=== PATIENT | male | born 1955 | race Caucasian/White ===

== ENCOUNTER 2019-07-14 09:28 | Emergency (ER) | payer OTHER ==
[2019-07-14 10:13] LABS: BASOPHILS # (AUTO) 0.1 10^3/uL (0.0-0.1); BASOPHILS % (AUTO) 0.6 %; EOSINOPHILS # (AUTO) 0.3 10^3/uL (0.0-0.7); EOSINOPHILS % (AUTO) 3.3 %; HGB - HEMOGLOBIN 15.5 g/dL (14.0-18.0); LYMPHOCYTES # (AUTO) 1.6 10^3/uL (1.5-3.5); MEAN CORPUSCULAR HEMOGLOBIN 31.6 pg (27.0-31.0); MEAN CORPUSCULAR HGB CONC 33.5 g/dL (32.0-36.0); MEAN CORPUSCULAR VOLUME 94.5 fL (80.0-94.0); MEAN PLATELET VOLUME 9.8 fL (7.4-11.4); MONOCYTES # (AUTO) 0.7 10^3/uL (0.0-1.0); MONOCYTES % (AUTO) 9.4 %; NEUTROPHILS # (AUTO) 5.2 10^3/uL (1.5-6.6); NEUTROPHILS % (AUTO) 66.3 %; PLT - PLATELET COUNT 249 10^3/uL (130-450); RED CELL DISTRIBUTION WIDTH 12.9 % (12.0-15.0); WHITE BLOOD COUNT 7.8 x10^3/uL (4.8-10.8)
[2019-07-14 10:26] LABS: ALBUMIN 3.7 g/dL (3.2-5.5); ALBUMIN/GLOBULIN RATIO 1.1 (1.0-2.2); BILIRUBIN,TOTAL 0.8 mg/dL (0.2-1.0); CALCIUM 8.6 mg/dL (8.5-10.3); CREATININE 0.9 mg/dL (0.6-1.2); TOTAL PROTEIN 7.1 g/dL (6.7-8.2)
--- NOTE | 2019-07-14 10:43 | ED Physician Documentation ---
PD HPI DYSPNEA - Stated complaint Stated Complaint: HANDS,LEGS SWELLING - Chief complaint Chief Complaint: Cardiac - History obtained from History obtained from: Patient - History of Present Illness Timing - onset: How many days ago (Few days of progressive edema initially in the feet and ankles. He had started a new job that was on his feet more so thought it was just gravity. He has been elevating his legs more after work. I worries not feeling swelling in his arms for a couple of days and then around his face. He denies any intraoral swelling or any dyspnea. He has been urinating okay. He denies any hives or itching. He denies change in diet or salt intake. No new medications. He does not take blood pressure medicines but only have a aspirin a day.) Timing - onset during: Light activity Timing - details: Gradual onset, Still present Inciting event(s): No: Out of meds, URI, Immobilization/travel Worsened by: Exertion (mild exertional dyspnea; no orthopnea.) Associated symptoms: Bilateral edema. No: Fever, Cough, Hemoptysis, Wheezing, Anxiety Similar symptoms before: Has not had sx before Review of Systems Constitutional: denies: Fever, Chills, Myalgias Nose: denies: Rhinorrhea / runny nose, Congestion Throat: denies: Sore throat Respiratory: denies: Cough GI: denies: Abdominal Pain, Nausea, Vomiting, Diarrhea, Bloody / black stool Skin: denies: Rash, Lesions Neurologic: denies: Altered mental status, Headache Endocrine: reports: Weight gain (about 5 lbs in the past week.). denies: Weight loss PD PAST MEDICAL HISTORY - Past Medical History Past Medical History: No - Past Surgical History Past Surgical History: Yes - Present Medications Home Medications: Ambulatory Orders Medication Instructions Recorded Confirmed Aspirin Chewable [St Austyn 81 mg ORAL DAILY 07/14/19 07/14/19 Aspirin] Cetirizine [ZyrTEC] 10 mg PO DAILY #15 tablet 07/14/19 Furosemide [Lasix] 20 mg PO DAILY #10 tablet 07/14/19 dexAMETHasone [Decadron] 4 mg PO DAILY #5 tablet 07/14/19 - Allergies Allergies/Adverse Reactions: Allergies Allergy/AdvReac Type Severity Reaction Status Date / Time No Known Drug Allergies Allergy Verified 07/14/19 09:42 - Social History Does the pt smoke?: No Smoking Status: Former smoker Does the pt drink ETOH?: No Does the pt have substance abuse?: No - Immunizations Immunizations: TDAP >10years/unknown PD ED PE NORMAL - Vitals Vital signs reviewed: Yes - General General: Alert and oriented X 3, No acute distress, Well developed/nourished - HEENT HEENT: Moist mucous membranes, Pharynx benign - Neck Neck: Supple, no meningeal sign, No adenopathy - Cardiac Cardiac: RRR, No murmur - Respiratory Respiratory: Clear bilaterally - Abdomen Abdomen: Soft, Non tender - Derm Derm: Normal color, Warm and dry - Extremities Extremities: No calf tenderness / cord, Other (1+ edema in legs/feet, arms/hands, and some in face, and notable periorbital. No intraoral swelling. ) - Neuro Neuro: Alert and oriented X 3, No motor deficit, Normal speech Results - Vitals Vitals: Oxygen O2 Source Room air - Labs Labs: Laboratory Tests 07/14/19 07/14/19 07/14/19 10:03 10:03 10:03 WBC 7.8 RBC 4.90 Hgb 15.5 Hct 46.3 MCV 94.5 H MCH 31.6 H MCHC 33.5 RDW 12.9 Plt Count 249 MPV 9.8 Neut # (Auto) 5.2 Lymph # (Auto) 1.6 [place] # (Auto) 0.7 Eos # (Auto) 0.3 Baso # (Auto) 0.1 Absolute Nucleated RBC 0.00 Nucleated RBC % 0.0 Sodium 137 Potassium 3.7 Chloride 104 Carbon Dioxide 25 Anion Gap 8.0 BUN 14 Creatinine 0.9 Estimated GFR (MDRD) 85 L Glucose 109 H Calcium 8.6 Magnesium 2.0 Total Bilirubin 0.8 AST 23 ALT 27 Alkaline Phosphatase 51 Troponin I High Sens 7.5 B-Natriuretic Peptide Total Protein 7.1 Albumin 3.7 Globulin 3.4 Albumin/Globulin Ratio 1.1 Lipase 31 TSH Urine Color Urine Clarity Urine pH Ur Specific [place] Urine Protein Urine Glucose (UA) Urine Ketones Urine Occult Blood Urine Nitrite Urine Bilirubin Urine Urobilinogen Ur Leukocyte Esterase Ur Microscopic Review Urine Culture Comments 07/14/19 07/14/19 07/14/19 10:03 10:03 12:54 WBC RBC Hgb Hct MCV MCH MCHC RDW Plt Count MPV Neut # (Auto) Lymph # (Auto) [place] # (Auto) Eos # (Auto) Baso # (Auto) Absolute Nucleated RBC Nucleated RBC % Sodium Potassium Chloride Carbon Dioxide Anion Gap BUN Creatinine Estimated GFR (MDRD) Glucose Calcium Magnesium Total Bilirubin AST ALT Alkaline Phosphatase Troponin I High Sens B-Natriuretic Peptide 30 Total Protein Albumin Globulin Albumin/Globulin Ratio Lipase TSH 1.71 Urine Color LT. YELLOW Urine Clarity CLEAR Urine pH 5.5 Ur Specific Hammond 1.010 Urine Protein NEGATIVE Urine Glucose (UA) NEGATIVE Urine Ketones NEGATIVE Urine Occult Blood NEGATIVE Urine Nitrite NEGATIVE Urine Bilirubin NEGATIVE Urine Urobilinogen 0.2 (NORMAL) Ur Leukocyte Esterase NEGATIVE Ur Microscopic Review NOT INDICATED Urine Culture Comments NOT INDICATED PD MEDICAL DECISION MAKING - ED course Complexity details: considered differential (General edema initially in the legs and feet and then the arms and now a little bit in the face. There is no signs of heart disease or kidney failure or proteinuria. I would consider the idea of allergic reaction to his aspirin. He is not on an JEM inhibitor.), d/w patient Departure - Departure Disposition: Home, Self Care Clinical Impression: Peripheral edema Condition: Stable Record reviewed to determine appropriate education?: Yes Instructions: ED Edema Legs Bilateral Follow-Up: Maurice Martin MD [Primary Care Provider] - Prescriptions: Cetirizine [ZyrTEC] 10 mg PO DAILY #15 tablet dexAMETHasone [Decadron] 4 mg PO DAILY #5 tablet Furosemide [Lasix] 20 mg PO DAILY #10 tablet Comments: There is no signs of heart failure, kidney failure electrolyte disorders or thyroid disorder. Your urine is normal without any signs of protein loss new urine. I do not have an obvious cause of the edema at this point. My p resumption would be an allergic reaction to your aspirin so I would have you hold that for now and treat with the diuretic for several days to week as well as a mild steroid and antihistamines. See how much improvement you have over the next several days to week. Follow-up with your primary care this coming week, call Tuesday morning for an appointment. Discharge Date/Time: 07/14/19 13:56
--- NOTE | 2019-07-14 11:08 | XRAY Report ---
Reason: Chest pain Procedure Date: 07/14/2019 Accession Number: [id number] / [id number] Procedure: XR - Chest 1 View X-Ray CPT Code: 73287 Final Report FULL RESULT: EXAM: CHEST RADIOGRAPHY EXAM DATE: 07/14/2019 10:55 AM. CLINICAL HISTORY: Bilateral lower limb edema. COMPARISON: None. TECHNIQUE: 1 view. FINDINGS: Lungs/Pleura: There is minimal basal atelectasis and a small focus of right lower lobe consolidation. Mediastinum: Within exam limitations, the cardiomediastinal contour is normal. Other: None. IMPRESSION: Small focus of right lower lobe consolidation with bibasal atelectasis. Differential diagnosis includes pneumonia. RADIA
[2019-07-14] MEDS ORDERED: diphenhydrAMINE INJ 50 MG/ML VIAL IVP STA (11:10)
[2019-07-14] MEDS ORDERED: DEXAMETHASONE 10 MG/ML VIAL IVP STA (11:10)
[2019-07-14] MEDS ORDERED: FUROSEMIDE 20 MG/2 ML VIAL IVP STA (11:10)
[2019-07-14 13:18] LABS: BILIRUBIN,URINE NEGATIVE (NEGATIVE); GLUCOSE, URINE (UA) NEGATIVE (NEGATIVE); KETONES,URINE (UA) NEGATIVE (NEGATIVE); LEUKOCYTE ESTERASE, URINE NEGATIVE (NEGATIVE); NITRITE,URINE NEGATIVE (NEGATIVE); OCCULT BLOOD,URINE NEGATIVE (NEGATIVE); PH,URINE 5.5 PH (5.0-7.5); PROTEIN,URINE NEGATIVE (NEGATIVE); UROBILINOGEN,URINE 0.2 (NORMAL) E.U./dL (NORMAL)
[2019-07-14 13:21] LABS: CLARITY,URINE CLEAR (CLEAR)
[2019-07-14 13:33] VITALS: BP 141/101
== END 2019-07-14 13:56 | disposition home or self-care (01) ==
LOC: ED 09:28
DX: R60.9 Edema, unspecified (principal); Z87.891 Personal history of nicotine dependence; Z79.82 Long term (current) use of aspirin
CPT/HCPCS: 36415; 71045; 81003; 83690; 83735; 83880; 84484; 93005; 96374; 99284; J1200; 80053; 81001; 84443; 85025; 87086

== ENCOUNTER 2020-04-07 14:29 | Outpatient (CLI) | payer MEDICARE, OTHER ==
--- NOTE | 2020-04-07 16:31 | XRAY Report ---
PROCEDURE: Hip w/Pelvis 1V LT INDICATIONS: POSSIBLE OSTEO ARTHRITIS TECHNIQUE: AP pelvis with lateral view(s) of the left hip(s). COMPARISON: None. FINDINGS: Bones: No fractures or dislocations. Pelvic ring appears intact. No suspicious bony lesions. Bone s appear well-mineralized. Minimal to mild degenerative narrowing is present within the hips bilatera lly. Soft tissues: The visualized bowel gas pattern is normal. No suspicious soft tissue calcifications. IMPRESSION: Well-mineralized bones with early arthritic changes in the hips. Reviewed by: Libia Piedra MD on 04/07/2020 4:30 PM PST Approved by: Libia Piedra MD on 04/07/2020 4:30 PM PST Station ID: [id number]
--- NOTE | 2020-04-07 16:32 | XRAY Report ---
PROCEDURE: Lumbar Spine 2 View INDICATIONS: POSSIBLE OSTEOARTHRITIS TECHNIQUE: 3 views of the lumbar spine were acquired. COMPARISON: None. FINDINGS: Bones: 5 [id number] vertebrae are present. There is rightward curvature of the lumbar spine wi th apex at L2. Multilevel moderate to severe degenerative disc space narrowing is present. There is g rade 1 retrolisthesis of L3 on L4, trace retrolisthesis of L2 on L3. There is severe foraminal narrow ing at L5-S1, L1-L2, L2-3 and L3-4, mild to moderate L4-5. No vertebral body compression fractures. No suspicious bony lesions. Soft tissues: Overlying bowel gas pattern is normal. No suspicious soft tissue calcifications. IMPRESSION: Multilevel degenerative changes most severe at L5-S1. Reviewed by: Libia Piedra MD on 04/07/2020 4:31 PM PST Approved by: Libia Piedra MD on 04/07/2020 4:31 PM PST Station ID: [id number]
== END 2020-04-07 14:30 | disposition home or self-care (01) ==
LOC: DI.N 14:29
PROVIDERS: ATTEND Physician Assistant
DX: M16.0 Bilateral primary osteoarthritis of hip (principal); M47.817 Spondylosis without myelopathy or radiculopathy, lumbosacral region

== ENCOUNTER 2023-06-26 09:57 | Outpatient (CLI) | payer MEDICARE, OTHER ==
--- NOTE | 2023-06-26 20:34 | Ultrasound Report ---
PROCEDURE: Aorta Screening INDICATIONS: ENCOUNTER FOR SCREENING FOR CARDIOVASCULAR DISORDE TECHNIQUE: Real time scanning was performed of the aorta and iliac arteries, with image documentatio n. COMPARISON: None. FINDINGS: Aorta: Proximal aortic diameter measures 2.5 x 2.5 cm. Mid-aorta measures 2.1 x 2.1 cm. Distal aor tic diameter is 2 x 2 cm. Iliac arteries: Right common iliac artery measures 1 x 1.1 cm. Left common iliac artery measures 1. 1 x 1.2 cm. IMPRESSION: 1.No abdominal aortic aneurysm. Proximal abdominal aorta is ectatic measuring 2.5 x 2.5 cm. Recommend repeat imaging in 5 years. 2.Bilateral common iliac arteries are normal in caliber, where visualized. Recommended intervals for follow-up imaging of ectatic aortas and abdominal aortic aneurysms, per ACR consensus guidelines: 2.5-2.9 cm: 5 years 3.0-3.4 cm: 3 years 3.5-3.9 cm: 2 years 4.0-4.4 cm: 1 year 4.5-4.9 cm: 6 months + endovascular referral 5.0-5.5 cm: 3-6 months + endovascular referral Reviewed by: Jessika Street MD on 06/26/2023 8:33 PM PDT Approved by: Jessika Street MD on 06/26/2023 8:33 PM PDT Station ID: [id number]
== END 2023-06-26 09:58 | disposition home or self-care (01) ==
LOC: DI 09:57
PROVIDERS: ATTEND Student in an Organized Health Care Education/Training Program
DX: Z13.6 Encounter for screening for cardiovascular disorders (principal); I77.811 Abdominal aortic ectasia